=== PATIENT | male | born 1960 | race Caucasian/White ===

== ENCOUNTER 2016-07-19 02:37 | Emergency (ER) | payer MEDICAID, OTHER ==
[2016-07-19 03:08] VITALS: BP 161/99
[2016-07-19 03:25] LABS: CHLORIDE,CL 100 mEq/L (98-106); SODIUM,NA 138 mEq/L (136-145)
--- NOTE | 2016-07-19 03:32 | EDM.PDOC ---
ED HPI GENERAL MEDICAL PROBLEM - General Chief Complaint: General Stated Complaint: PALPITATIONS Time Seen by Provider: 07/19/16 03:30 - History of Present Illness INITIAL COMMENTS - FREE TEXT/NARRATIVE: History of present illness: [55-year-old male presenting with complaints of acute onset palpitations. Patient indicates that he was laying down and suddenly felt his heart racing and pounding it is quite painful but it was transient and self-limiting. Patient is concerned due to family history of cardiac disease them in via EMS to be evaluated.] Review of systems: As per history of present illness and below otherwise all systems reviewed and negative. Past medical history: As per history of present illness and as reviewed below otherwise noncontributory. Surgical history: As per history of present illness and as reviewed below otherwise noncontributory. Social history: No reported history of drug or alcohol abuse. Family history: As per history of present illness and as reviewed below otherwise noncontributory. Physical exam: HEENT: Atraumatic, normocephalic, pupils reactive, negative for conjunctival pallor or scleral icterus, mucous membranes moist, throat clear, neck supple, nontender, trachea midline. Lungs: Clear to auscultation, breath sounds equal bilaterally, chest nontender. Heart: S1S2, regular, negative for clicks, rubs, or JVD. Abdomen: Soft, nondistended, nontender. Negative for masses or hepatosplenomegaly. Negative for costovertebral tenderness. Pelvis: Stable nontender. Genitourinary: Deferred. Rectal: Deferred. Extremities: Atraumatic, negative for cords or calf pain. Neurovascular unremarkable. Neuro: Awake, alert, oriented. Cranial nerves II through XII unremarkable. Cerebellum unremarkable. Motor and sensory unremarkable throughout. Exam nonfocal. Patient does have an elevation of his CK, will do extended ER observation to evaluate secondary labs after an interval. Patient indicates he feels well, indicates he must be working a few hours and does not wish to stay. Patient is willing to sign out AMA. Diagnostics: [CBC, CMP, CK, LDH, EKG, chest x-ray] Therapeutics: [] Impression: [Atypical chest] Plan: [Patient is signing out AMA] Definitive disposition and diagnosis as appropriate pending reevaluation and review of above. - Related Data Allergies Allergy/AdvReac Type Severity Reaction Status Date / Time No Known Allergies Allergy Verified 07/19/16 02:50 Home Meds: Home Meds . [No Known Home Meds] 07/19/16 [History] Past Medical History - Past Surgical History HEENT Surgical History: Reports: Tonsillectomy Social & Family History - Family History Family Medical History: Noncontributory - Tobacco Use Smoking Status *Q: Current Every Day Smoker Years of Tobacco use: 1 Packs/Tins Daily: 45 - Caffeine Use Caffeine Use: Reports: Soda - Alcohol Use Days Per Week of Alcohol Use: 2 Number of Drinks Per Day: 4 Total Drinks Per Week: 8 - Recreational Drug Use Recreational Drug Use: No ED ROS GENERAL - Review of Systems Review Of Systems: See Below (The history of present illness) ED EXAM, GENERAL - Physical Exam Exam: See Below (See history of present illness) Course - Vital Signs Last Recorded V/S: Last Vital Signs Temp 36.8 C 07/19/16 03:02 Pulse 86 07/19/16 03:02 Resp 18 07/19/16 03:02 BP 161/99 H 07/19/16 03:02 Pulse Ox 97 07/19/16 03:02 - Orders/Labs/Meds Orders: Active Orders 24 hr Category Date Time Status CXR [Chest 2V] [CR] Stat Exams 07/19/16 02:54 Ordered EKG 12 Lead [EK] Routine Ther 07/19/16 02:54 Ordered Labs: Laboratory Tests 07/19/16 07/19/16 07/19/16 Range/Units 03:08 03:08 03:08 WBC 13.0 H (5.0-10.0) 10^3/uL RBC 4.81 (4.50-6.00) 10^6/uL Hgb 15.3 (14.0-18.0) g/dL Hct 44.2 (40.0-54.0) % MCV 91.9 (82.0-94.0) fL MCH 31.8 (27.0-32.0) pg MCHC 34.6 (33.0-38.0) g/dL RDW Coeff of Gabriella 13.8 (11.0-15.0) % Plt Count 273 (150-400) 10^3/uL Neut % (Auto) 69.1 (35-85) % Lymph % (Auto) 16.0 (10-55) % Haines % (Auto) 14.0 (0-16) % Eos % (Auto) 0.5 (0-5) % Baso % (Auto) 0.4 (0-3) % Neut # 8.96 H (1.80-7.00) 10^3/uL Lymph # 2.08 (1.00-4.80) 10^3/uL Haines # 1.81 H (0.00-0.80) 10^3/uL Eos # 0.07 (0.00-0.45) 10^3/uL Baso # 0.05 10^3/uL PT 10.9 (9.7-12.3) SEC INR 1.03 (0.92-1.18) APTT 27.6 (24.5-30.9) SEC Sodium 138 (136-145) mEq/L Potassium 3.5 (3.5-5.0) mEq/L Chloride 100 (98-106) mEq/L Carbon Dioxide 29 (21-32) mmol/L BUN 20 H (7-18) mg/dL Creatinine 1.0 (0.7-1.3) mg/dL Est Cr Clr Drug Dosing 91.51 mL/min Estimated GFR (MDRD) > 60 (>=60) mL/min Glucose 119 H (75-99) mg/dL Calcium 9.0 (8.4-10.1) mg/dL Total Bilirubin 1.0 (0.0-1.0) mg/dL AST 23 (15-37) U/L ALT 26 (12-78) U/L Alkaline Phosphatase 94 (46-116) U/L Lactate Dehydrogenase 205 H (100-190) U/L Creatine Kinase 421 H (35-232) U/L Troponin I 0.017 (0.00-0.06) ng/mL Total Protein 7.6 (6.4-8.2) g/dL Albumin 3.7 (3.4-5.0) g/dL Departure - Departure Time of Disposition: 04:06 Disposition: Against Medical Advice 07 Condition: good Clinical Impression: Atypical chest pain Forms: ED Department Discharge, Refusal of Care AMA - My Orders Last 24 Hours: My Active Orders 07/19/16 02:54 CXR [Chest 2V] [CR] Stat EKG 12 Lead [EK] Routine - Assessment/Plan Last 24 Hours: My Active Orders 07/19/16 02:54 CXR [Chest 2V] [CR] Stat EKG 12 Lead [EK] Routine
== END 2016-07-19 04:30 | disposition left against medical advice (07) ==
LOC: CC.ED 02:37
DX: R07.89 Other chest pain (principal); F17.210 Nicotine dependence, cigarettes, uncomplicated; Z98.890 Other specified postprocedural states
CPT/HCPCS: 36415; 71020; 80053; 82550; 83615; 84484; 85025; 85610; 85730; 93005; 99285